=== PATIENT | male | born 1950 | race Caucasian/White ===

== ENCOUNTER 2018-12-22 16:43 | Inpatient (IN) | payer OTHER, SELFPAY ==
[2018-12-22 18:04] VITALS: BP 106/66; PULSE 79; RESP 19; TEMP 36.2; O2SAT 96
--- NOTE | 2018-12-22 18:35 | W.PM.HP.N ---
Date of service: 12/22/18 Time of Service: 18:35 Assessment and Plan (1) Pancreatic cancer: Current visit: Yes Status: Acute Plan is to keep Grant as comfortable as possible and to transfer him to [facility] and rehab when available. He is presently on fentanyl patch 200 mcg new patches were placed at admission to hospital. He also has morphine for shortness of breath and Dilaudid for pain I am concerned that he may have some brain involvement when he speaks of the visual hallucinations that he is having. He seems to be processing things correctly, but in his brain not necessarily seeing things correctly. His significant weakness which evolved over the last 24 hours makes him at risk to stay at home. He will need to be in an extended care facility. Hospice new this was coming in and was planning on this. Due to his significant weakness and placement at [facility] and [facility], I have asked physical therapy to come in and evaluate what he needs to transfer safely I would appreciate care management to help in coordinating his care from [facility] to [facility] Patient is a DNR/DNI (2) Diabetes mellitus: Current visit: Yes Status: Chronic Will cover him with his usual Lantus and NovoLog. Twice daily blood sugar testing. Patient can refuse testing if he wants to. (3) CAD (coronary artery disease): Current visit: Yes Status: Chronic Will continue his cardiac medications (4) Weight loss, abnormal: Current visit: Yes Status: Acute History of Present Illness Chief Complaint: Abdominal pain and weakness Narrative: Grant is a 68-year-old male who was in his usual state of health until approximately 2 months ago when he developed abdominal pain. A CT scan was obtained and he was found to have widespread metastatic prostate cancer to lungs liver and stomach. He had lost approximately 100 pounds and is now about 350 pounds. He went on hospice approximately 3 weeks ago. He lives alone Today he woke up and was extremely weak. He was unable to get from the commode to the bed. He needed a lift assist. Hospice had anticipated that he would require an extended care facility toward the end of his life as he lives alone and there was no person capable of being a caregiver in the home. Unfortunately the time has come as he feels too weak to even turn over in bed. The overall plan is to admit him to respite care at [facility], and then transfer to [facility]. He is a [facility] and is eligible for placement at [facility] and rehab. Hospice has all of these paperwork in place. [facility] was not able to accept him today Today Grant states that he is hungry and really wants to eat. He said he is been unable to get food for him self for the last 24 hours. Review of Systems Review of Systems Initially patient thought his epigastric pain was secondary to lifting word. But CT scanning revealed that he had metastatic pancreatic cancer. Presently his epigastric region is in significant pain also goes down his right arm. He has developed significant weakness and is not able to turn over in bed. He also says that his brain is not processing things well. For instance he thought that I was 1 of his friends even though he knew what was the doctor, he said what he saw was his friend face. His p.o. intake continues to be good. There has been a reported 100 pound weight loss Constitutional Reports fatigue, Denies poor appetite, Reports weakness and Reports weight loss Eyes Reports other visual disturbances (hallucinations) Cardiovascular Reports chest pain and Reports dyspnea Respiratory Reports dyspnea Gastrointestinal Reports abdominal pain, Denies constipation and Reports nausea Genitourinary Reports system reviewed and no additional complaints, except as docu Musculoskeletal Reports back pain and Reports radiating pain into limb (right shoulder) Neurologic Reports weakness Psychiatric Reports visual hallucinations Endocrine Reports fatigue PFSH Social History Smoking/Tobacco Use Status: Former Tobacco Use Quit Date: 04/19/79 Tobacco: How many years used: 17 Alcohol Intake: former Drug use: Never Details: Prescribed opiates Do you feel safe at home: Yes Do you feel safe in your relationship?: Yes Meds Home Medications Medication Instructions Recorded Confirmed Type acetaminophen 325 mg PO Q4H PRN 12/22/18 12/22/18 History acetaminophen 650 mg ME Q6H PRN 12/22/18 12/22/18 History carvedilol 6.25 mg PO BID 12/22/18 12/22/18 History clonidine HCl 0.1 mg PO QAM 12/22/18 12/22/18 History fentanyl 100 mcg/hr transdermal 2 patch TD Q72H #10 each MDD 200mcg 12/22/18 Rx patch folic acid 1 mg PO QAM 12/22/18 12/22/18 History gabapentin 300 mg PO BID 12/22/18 12/22/18 History haloperidol lactate 1 mg PO Q6H PRN 12/22/18 12/22/18 History hydromorphone 4 mg PO Q3H PRN 12/22/18 12/22/18 History hyoscyamine sulfate 1 tab PO Q4H PRN 12/22/18 12/22/18 History insulin aspart U-100 [Novolog 0 unit SUBCUT BID 12/22/18 12/22/18 History Flexpen U-100 Insulin] insulin glargine [Lantus Solostar 30 unit SUBCUT QPM 12/22/18 12/22/18 History U-100 Insulin] lisinopril 40 mg PO DAILY 12/22/18 12/22/18 History lorazepam [Ativan] 1 mg PO Q6H PRN 12/22/18 12/22/18 History metformin 1,000 mg PO BID 12/22/18 12/22/18 History methotrexate sodium 2.5 mg PO .QMONDAY 12/22/18 12/22/18 History morphine concentrate 5 - 20 mg PO Q1H PRN 12/22/18 12/22/18 History ondansetron 4 mg PO Q8H PRN 12/22/18 12/22/18 History polyethylene glycol 3350 [Miralax] 17 g PO DAILY 12/22/18 12/22/18 History prochlorperazine maleate 10 mg PO Q6H PRN 12/22/18 12/22/18 History sennosides [senna] 8.6 mg PO DAILY 12/22/18 12/22/18 History sodium phosphates [Fleet Enema] 1 ml ME DAILY PRN 12/22/18 12/22/18 History Allergies Allergy/AdvReac Type Severity Reaction Status Date / Time cephalexin Allergy Unknown Unverified 12/22/18 17:22 felodipine Allergy Unknown Unverified 12/22/18 17:22 metoprolol Allergy Unknown Unverified 12/22/18 17:22 naproxen Allergy Unknown Unverified 12/22/18 17:22 nifedipine Allergy Unknown Unverified 12/22/18 17:22 Exam Narrative Exam Narrative: Grant is a friendly 68-year-old man who 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 He is unable to sit up or move from side to side without assistance. During some of our visit, his meal had come, and he stated he was very hungry and wanted to eat. I made the exam portion of his history and physical short because of his inability to move and his desire to eat Const General: cooperative and comfortable Nutritional Appearance: obese Orientation: oriented x3 Eyes General: appearance normal, both eyes and all related structures Neck Other: He does have a fullness to his lower neck on both sides. He states that he did not used to be able to see being because of his obesity. He thinks that they are just normal in about his been there but hidden by his additional weight Resp Effort & Inspection: able to speak in complete sentences and abnormal respiratory pattern Auscultation: no crackles and diminished lung sounds Cardio Rhythm: regular rhythm GI Palpation: soft and tender Auscultation: normal bowel sounds Skin General skin exam: no rashes or lesions noted Psych Appearance: grossly normal Speech and Movement: speech clear and slowed movement Mood: congruent mood (matter of fact about his pancreatic ca and prognosis) Attitude: cooperative
[2018-12-22 19:55] VITALS: BP 96/68; PULSE 86; RESP 20; TEMP 36.7; O2SAT 96
[2018-12-22] MEDS: Gabapentin 300 MG CAP PO (19:57)
[2018-12-22] MEDS: Carvedilol 6.25 MG TAB PO (19:57)
[2018-12-22] MEDS: cloNIDine 0.1 MG TAB PO (19:59)
[2018-12-22] MEDS: Insulin Glargine 300 UNITS/3 ML PEN 30 UNITS SC (20:12)
[2018-12-22] MEDS: Insulin Aspart 300 UNITS/3 ML PEN 10 UNITS SC (20:14)
[2018-12-22 21:39] VITALS: O2SAT 96
[2018-12-23] MEDS: Senna TAB 1 TAB PO (08:34)
[2018-12-23] MEDS: Carvedilol 6.25 MG TAB PO ×2 (08:34→20:26)
[2018-12-23] MEDS: Lisinopril 20 MG TAB 40 MG PO (08:34)
[2018-12-23] MEDS: cloNIDine 0.1 MG TAB PO ×2 (08:34→20:26)
[2018-12-23] MEDS: Insulin Aspart 300 UNITS/3 ML PEN 10 UNITS SC ×2 (08:34→16:47)
[2018-12-23] MEDS: Polyethylene Glycol 3350 17 GM PACKET PO (08:34)
[2018-12-23] MEDS: Gabapentin 300 MG CAP PO ×2 (08:34→20:26)
[2018-12-23] MEDS: metFORMIN 500 MG TAB 1000 MG PO ×2 (09:22→16:47)
--- NOTE | 2018-12-23 09:55 | INITIAL_ITS ---
- If Service Date Differs Date of service: 12/23/18 Time of Service: 09:55 Care Management Initial Assess REASON FOR HOSPITALIZATION:: Hospice symptom management PAST MEDICAL HISTORY/PAST SURGICAL HISTORY:: Metastatic prostate cancer. Pancreatic cancer. Diabetes mellitus. CAD PREVIOUS FUNCTIONAL STATUS/SOCIAL/FAMILY SUPPORTS:: Grant lives alone in a single family home in [place], [place] He was diagnosed with metastatic cancer in November and it had progressed beyond the point where treatment could offer any benefit. He comes to [facility] for hospice respite and will be transferred to [facility] on Wednesday. CURRENT FUNCTIONAL STATUS:: Víctor was very pleasant and cooperative when CM came to visit. He talked about his newly diagnosed cancer and the rapidity with which it has progressed. He was offered chemotherapy he said but was told it would only extend the inevitable by a couple of months. He stated that he preferred to go in the Lord's time. ADVANCE DIRECTIVES:: None on file Has patient been provided with information about the portal?: No Did the patient sign up for the portal?: No CODE STATUS:: DNR/DNI INSURANCE COVERAGE / FINANCIAL ISSUES:: [facility] CURRENT HOME/COMMUNITY SERVICES/EQUIPMENT:: hospice PRIMARY CARE PHYSICIAN:: Evon Corral MD PLAN:: Grant was admittted to [facility] for hospice respite. He is receiving medications to control his pain. He will be transferred to [facility] on Wednesday for further end of life care..
--- NOTE | 2018-12-23 11:43 | PT.INIE ---
Date of service: 12/23/18 Time of Service: 09:59 PT Notes Inpatient Physical Therapy Evaluation Date: 12/23/2018 Referring Doctor: Evon Corral PT Orders: PT CONSULT: We need to know how to best assist pt to be able to transfer, use commode Precautions: Fall. Standard. Morbid obesity. Patient Profile/Admitting Diagnosis: Patient is a 68 year old male who has stage four pancreatic cancer that has metastasized throughout his lungs and liver causing widespread pain. He also has morbid obesity. PMHX: Weight loss, abnormal Morbid obesity CAD (coronary artery disease) Diabetes Mellitus Pancreatic cancer Social History/Home Situation: Mr. Escobar reports that he lived alone in a home with three steps to enter and a railing on the left. His neighbors assisted him occasionally but are no longer able to due to his weight. Equipment Owned/DME: 4[employer] w/brakes Subjective: Mr. Escobar reports 4/10 widespread pain and desires to rest. He reports he is not receiving chemotherapy or radiation therapy for his condition, and has made peace with his current condition and its progression. Objective: General Observation: Mr. Escobar was seeing laying supine with HOB elevated, edema on bilateral lower extremities, open-area on the R posterior calf wrapped with dressing. Patient has flynn catheter. Mental Status: Alert and oriented x 4 Pain: 4/5 widespread ROM: Right Upper Extremity: Shoulder Flexion less than half of full ROM. Shoulder abduction less than half of full ROM. Elbow flexion WFL. Functional opening and closing of hand WFL. Left Upper Extremity: Shoulder Flexion WFL. Shoulder abduction WFL. Elbow flexion WFL. Wrist flexion WFL. Functional opening and closing of hand WFL. Right Lower Extremity: Markedly decreased globally Left Lower Extremity: Markedly decreased globally Strength: Right Upper Extremity: Shoulder flexors 3-/5. Shoulder abductors 3-/5. Elbow flexors 4/5. Elbow extensors 5/5. Supervisor Speech strong. Left Upper Extremity: Shoulder flexors 4/5. Shoulder abductors 4/5. Elbow flexors 5/5. Elbow extensors 5/5. Supervisor Speech strong. Right Lower Extremity: 3- globally Left Lower Extremity: 3- globally Bed Mobility/Transfers: Requires 2 people Rolling Moderate assist Supine to sit Moderate assist Sit to supine Moderate assist Sit to stand Maximum assist Stand to sit Maximum assist Bed to chair Moderate assist with STEDY-lift Chair to bed Moderate assist with STEDY-lift Gait: Patient is unable to ambulate independently with any assistive device and contact-assistance. Balance: Static Sitting: Normal Dynamic Sitting: Good Static Standing: Poor Dynamic Standing: Unable Special Tests: Mobility Limitations Standardized Measure [facility] AM-PAC 6 clicks Basic Mobility Inpatient Short Form: Raw Score: 9 CMS Score: 81% Informed Consent/Education: Patient instructed in purpose of PT consult and plan of care. Assessment: Patient is a 68 year old male with stage 4 pancreatic cancer and morbid obesity. He presents with edematous lower extremities and a significant wound on the posterior of his R lower leg. He required moderate assist with all bed mobility activities, and a STEDY-lift with two people for transfers. He is no longer accepting treatment for his cancer. While his prognosis is poor, he has made peace with his current condition and its progression. Patient presents with clinical signs and symptoms consistent with current/admitting diagnoses that have resulted to mobility limitations, gait instability, generalized weakness, and impairment of motor control as demonstrated by the following impairment level findings: 1. Decreased strength to B LE major muscle groups 2. Impaired sitting/standing balance 3. Impaired activity tolerance 4. Limitation of joint range of motion globally Impairments are contributing to the following functional limitations: 1. Dependent bed mobility skills 2. Increased dependence with transfers 3. Inability to safely ambulate without assistive device and physical assistance 4. Increase completion time for mobility ADL performance 5. Increased fall risk 6. Inability to negotiate steps alone safely Patient is assessed as a high complexity based on the following: History: Stage 4 pancreatic cancer with metastases, wound on lower extremity, morbid obesity, diabetes, CAD Examination: Demonstrable impairment in strength, balance, and range of motion with underlying impairments and functional limitations as documented above Presentation: Evolving Decision Making: High complexity Goals: Goals X1 week 1. Increase standing balance/tolerance up to 7 minutes in STEDY-lift. 2. Increase activity tolerance to 2 sets of B LE exercises every two hours. Plan of Care/Treatment Plan: 1-2x/day, 7 days/week x 1 week. Plan of care has been reviewed with the BIOMASS FACILITATOR providing the service under Physical Therapy direction. Initiate Physical Therapy intervention for strengthening, bed mobility, transfers, gait, stairs, balance training, use of assistive device. DISCHARGE RECOMMENDATIONS: Patient is recommended to be discharged to a long-term facility once medically stable. He will require moderate assistance for all bed mobility and a STEDY-lift to transfer him. TREATMENT CODE/TIME: 41251 x 40 minutes 85850 x 11 minutes beginning at 9:59 AM. Thank you very much for this referral. Martell Kahn [facility] With the supervision of: Cristina Molina PT, DPT, CLT [facility]
[2018-12-23] MEDS: Nystatin POWDER 60 GM JAR TP ×2 (14:19→20:21)
[2018-12-23] MEDS: Ondansetron O.D.T. 4 MG TABEF PO (14:31)
--- NOTE | 2018-12-23 15:02 | PGE_ITS ---
Date of Service Date of service: 12/23/18 Time of Service: 12:03 Assessment and Plan (1) Pancreatic cancer: Current visit: Yes Status: Acute (2) Diabetes mellitus: Current visit: Yes Status: Chronic (3) Karina infection: Current visit: Yes Status: Acute wound care: nursing is cleansing the area and using nystatin powder. Lower right leg is wrapped Pancreatic cancer: continues to have pain. Presently controlled with frequent administration of morphine. COnt with the fentanyl patches 200mcg DM - stable. He will remain on respite care at [facility] with plans to move to [facility] and rehab on Wednesday Nursing can call me with any concerns: [phone] This document was created by [employer] recognition and may contain grammatical and translation errors. Subjective Patient reports: no new complaints, feels better, still having pain, tolerating a regular diet and shortness of breath Interval history since last seen: Overall feeling safe and well cared for. He stated they had a lot of problems with his skin last pm Exam Narrative Exam Narrative: Sitting in a chair, eating lunch. He had finished about 3/4 when I walked in. His eyes were bright. There was a flynn catheter in place Const General: cooperative Nutritional Appearance: obese Orientation: oriented x3 Eyes General: appearance normal, both eyes and all related structures Resp Effort & Inspection: normal respiratory effort Auscultation: clear to auscultation bilaterally and diminished lung sounds Cardio Rhythm: regular rhythm GI Palpation: soft and guarding Auscultation: normal bowel sounds Meatus: meatus normal Skin General skin exam: erythema (near penis and inner left thigh) Wounds: wounds noted (right lower leg , skin tear) Psych Appearance: grossly normal Mental Status: mental status grossly normal Objective Objective Clinical Data: Vital Signs Temperature 98.1 F 12/22/18 19:55 Temperature Source Tympanic 12/22/18 19:55 Pulse 86 12/22/18 19:55 Pulse Rhythm Regular 12/22/18 19:46 Respiratory Rate 20 12/22/18 19:55 Respiratory Effort 12/23/18 08:35 Respiratory Depth Normal 12/23/18 08:35 Respiratory Pattern Normal 12/23/18 08:35 Blood Pressure 96/68 L 12/22/18 19:55 Pulse Oximetry 96 12/22/18 21:39 Oxygen Delivery Method Room Air 12/22/18 21:39 Oxygen Flow Rate 0 12/22/18 21:39 Pain Level 5 12/23/18 12:00 Intake & Output 12/22/18 12/23/18 12/23/18 23:59 11:59 23:59 Intake Total 360 / 360 Output Total 200 / 200 Balance -200 / 160 360 / 160 Weight 325 lb 325 lb 6.436 oz Intake: Oral 360 / 360 Output: Urine 200 / 200 Other: Urine Color Yellow Yellow Urine Appearance Clear Clear
--- NOTE | 2018-12-23 15:33 | CHAPLAIN ---
Grant had a friend visiting when I stopped in. He is a member of the [facility] [employer] and said his fundraising director was here last night. His friend is also from the [facility]. Grant told me that he lives alone, and now no longer thinks he can care for himself at home. He told me he has pancreatic cancer. He seems to be comfortable being here and to be support by his rastafarian as he has not family. I will continue to visit.
--- NOTE | 2018-12-23 16:00 | PTTR_ITS ---
Date of service: 12/23/18 Time of Service: 09:59 PT Notes Inpatient Physical Therapy Treatment Note Date: 12/23/2018 PRECAUTIONS:Fall. Standard. Activity as tolerated. SUBJECTIVE: Mr. Escobar is feeling tired, lethargic, and needed coaxing to participate in therapy. The SPT offered exercises to enhance bed mobility and he asked: ?Why do I have to do exercises if I?m just going to ?? He eventually agreed to participate. OBJECTIVE: Mr. Escobar was seen laying supine with HOB elevated. PAIN: Patient reports widespread pain along the abdominal region BED MOBILITY/TRANSFERS Rolling L/R: Mod assist of 2 Supine-sit: Mod assist of 2 Sit-supine: Mod assist of 2 Sit-stand: Assist of 2 using STEDY lift Stand-sit: Assist of 2 using STEDY lift Bed-Chair: Assist of 2 using STEDY lift Chair-bed: Assist of 2 using STEDY lift When using STEDY lift, L leg goes against L neal guard as it gives way and the bed may need to be elevated significantly to facilitate sit to stand. GAIT: Patient unable to ambulate. THEREX: 1 x 10 ankle pumps, quad sets, glute sets, and shoulder flexion. Refused 1 x 10 shoulder abduction. ASSESSMENT: Patient is a 68 year old male admitted with stage 4 pancreatic cancer with metastases. He reports widespread pain, and needs strong convictions to participate in physical therapy sessions. He requires moderate assistance for bed mobility, often from multiple people. Despite his poor prognosis, he has accepted his current condition and it?s progression. cancer. While his prognosis is poor, he has made peace with his current condition and its progression. Patient presents with clinical signs and symptoms consistent with current/admitting diagnoses that have resulted to mobility limitations, gait instability, generalized weakness, and impairment of motor control. PLAN: 1x/day, 7 days/week x 1 week. Plan of care has been reviewed with the SLIDING JOINT MAKER providing the service under Physical Therapy direction. Initiate Physical Therapy intervention for strengthening, bed mobility, transfers, gait, stairs, balance training, use of assistive device. DISCHARGE RECOMMENDATIONS: Patient is recommended to be discharged to a detention facility once medically stable. He will require moderate assistance for all bed mobility and a STEDY-lift to transfer him. TREATMENT CODE/TIME: 65373 x 26 minutes beginning at 14:16 PM. Thank you very much for this referral. Martell Kahn [facility] With a supervision of: Cristina Molina PT, DPT, CLT [facility]
[2018-12-23] MEDS: Prochlorperazine 10 MG TAB PO (18:14)
[2018-12-23] MEDS: Insulin Glargine 300 UNITS/3 ML PEN 30 UNITS SC (20:21)
[2018-12-23 20:30] VITALS: BP 129/72; PULSE 72
[2018-12-24] MEDS: Polyethylene Glycol 3350 17 GM PACKET PO (07:42)
[2018-12-24] MEDS: cloNIDine 0.1 MG TAB PO (07:42)
[2018-12-24] MEDS: Gabapentin 300 MG CAP PO ×2 (07:42→20:37)
[2018-12-24] MEDS: metFORMIN 500 MG TAB 1000 MG PO ×2 (07:42→16:50)
[2018-12-24] MEDS: Lisinopril 20 MG TAB 40 MG PO (07:42)
[2018-12-24] MEDS: Senna TAB 1 TAB PO (07:43)
[2018-12-24] MEDS: Insulin Aspart 300 UNITS/3 ML PEN 10 UNITS SC ×2 (07:43→16:50)
[2018-12-24] MEDS: Carvedilol 6.25 MG TAB PO (07:43)
[2018-12-24 08:00] VITALS: BP 116/62; PULSE 68; RESP 18; TEMP 36.3; O2SAT 95
[2018-12-24] MEDS: Nystatin POWDER 60 GM JAR TP ×3 (08:05→21:55)
[2018-12-24 10:53] VITALS: O2SAT 95
--- NOTE | 2018-12-24 13:58 | PHARADMIT ---
Admission Pharmacy Clinical Review HOSPICE (Pancreatic cancer) Plan is for [facility] on Wednesday Getting MS IVP as needed (~6 doses the last 24hrs) Fentanyl 200mcg patches, set to be changed 12/25 Dilaudid orally-not using pt does c/o pain FSBS 228 (Metformin, Lantus, Insulin)
[2018-12-24] MEDS: Insulin Glargine 300 UNITS/3 ML PEN 30 UNITS SC (20:39)
[2018-12-24 21:28] VITALS: BP 93/57; PULSE 72
[2018-12-25] MEDS: Mylanta Suspension 30 ML CUP PO (02:15)
[2018-12-25] MEDS: metFORMIN 500 MG TAB 1000 MG PO ×2 (08:27→17:26)
[2018-12-25] MEDS: Polyethylene Glycol 3350 17 GM PACKET PO (08:27)
[2018-12-25] MEDS: Carvedilol 6.25 MG TAB PO ×2 (08:28→20:09)
[2018-12-25] MEDS: Lisinopril 20 MG TAB 40 MG PO (08:28)
[2018-12-25] MEDS: Gabapentin 300 MG CAP PO ×2 (08:28→20:01)
[2018-12-25] MEDS: cloNIDine 0.1 MG TAB PO ×2 (08:28→20:01)
[2018-12-25] MEDS: Senna TAB 1 TAB PO (08:28)
[2018-12-25] MEDS: Insulin Aspart 300 UNITS/3 ML PEN 10 UNITS SC ×2 (08:30→17:26)
[2018-12-25] MEDS: fentaNYL 100 MCG PATCH 200 MCG TD (08:31)
[2018-12-25] MEDS: Patch Removal 1 EACH TP (08:35)
[2018-12-25] MEDS: Ondansetron O.D.T. 4 MG TABEF PO ×2 (08:54→21:35)
[2018-12-25] MEDS: Nystatin POWDER 60 GM JAR TP (18:25)
[2018-12-25] MEDS: Insulin Glargine 300 UNITS/3 ML PEN 30 UNITS SC (20:05)
[2018-12-26 08:00] VITALS: BP 113/71; PULSE 105; RESP 20; TEMP 35.5; O2SAT 96
--- NOTE | 2018-12-26 08:00 | DSE_ITS ---
ADMITTED: 12/22/18 DISCHARGED: 12/26/18 68 yo male with hx of RA, DM and recently dx metastatic pancreatic cancer who cam to the hospital for respite after he was unable to perform his ADL's and there was no available caregiver to help him. In the hospital he had a PT consult with help with transfers. He was also found to have a candidal infection in his groin and skin tear on his right leg from a recent fall. His PO intake was good during this admission. Wound care was done daily. He initially had a catheter placed to help with wound care. At the time of discharge, this was d/c ed per pt wishes and improvement of mary. The plan is for [facility]. It is expected that [facility] will [facility] at [facility] for the duration of his illness with Hospice oversight.
[2018-12-26] MEDS: Carvedilol 6.25 MG TAB PO (08:03)
[2018-12-26] MEDS: metFORMIN 500 MG TAB 1000 MG PO (08:03)
[2018-12-26] MEDS: Gabapentin 300 MG CAP PO (08:03)
[2018-12-26] MEDS: Senna TAB 1 TAB PO (08:03)
[2018-12-26] MEDS: cloNIDine 0.1 MG TAB PO (08:04)
[2018-12-26] MEDS: Lisinopril 20 MG TAB 40 MG PO (08:04)
[2018-12-26] MEDS: Nystatin POWDER 60 GM JAR TP (08:06)
[2018-12-26] MEDS: Polyethylene Glycol 3350 17 GM PACKET PO (08:06)
[2018-12-26] MEDS: Insulin Aspart 300 UNITS/3 ML PEN 10 UNITS SC (08:21)
--- NOTE | 2018-12-26 08:37 | INDS_ITS ---
Date of service: 12/26/18 Time of Service: 08:37 PT Notes Inpatient Physical Therapy Discharge Summary Dates: 12/26/2018 Dates of Service: 12/23/2017 only This is a clinical summary of care provided on the duration of dates listed above. No charge was made in the completion of this documentation. Referring Doctor: Evon Corral PT Orders: PT CONSULT: We need to know how to best assist pt to be able to transfer, use commode Precautions: Fall. Standard. Morbid obesity. Patient Profile/Admitting Diagnosis: Patient is a 68 year old male who has stage four pancreatic cancer that has metastasized throughout his lungs and liver causing widespread pain. He also has morbid obesity. PMHX: Weight loss, abnormal Morbid obesity CAD (coronary artery disease) Diabetes Mellitus Pancreatic cancer Social History/Home Situation: Mr. Escobar reports that he lived alone in a home with three steps to enter and a railing on the left. His neighbors assisted him occasionally but are no longer able to due to his weight. Equipment Owned/DME: 4WW w/brakes Subjective: Mr. Escobar reports 4/10 widespread pain and desires to rest. He reports he is not receiving chemotherapy or radiation therapy for his condition, and has made peace with his current condition and its progression. Objective: General Observation: Mr. Escobar was seeing laying supine with HOB elevated, edema on bilateral lower extremities, open-area on the R posterior calf wrapped with dressing. Patient has flynn catheter. Mental Status: Alert and oriented x 4 Pain: 4/5 widespread ROM: Right Upper Extremity: Shoulder Flexion less than half of full ROM. Shoulder abduction less than half of full ROM. Elbow flexion WFL. Functional opening and closing of hand WFL. Left Upper Extremity: Shoulder Flexion WFL. Shoulder abduction WFL. Elbow flexion WFL. Wrist flexion WFL. Functional opening and closing of hand WFL. Right Lower Extremity: Markedly decreased globally Left Lower Extremity: Markedly decreased globally Strength: Right Upper Extremity: Shoulder flexors 3-/5. Shoulder abductors 3-/5. Elbow flexors 4/5. Elbow extensors 5/5. [employer] Dispatcher strong. Left Upper Extremity: Shoulder flexors 4/5. Shoulder abductors 4/5. Elbow flexors 5/5. Elbow extensors 5/5. [employer]pecting Dispatcher strong. Right Lower Extremity: 3- globally Left Lower Extremity: 3- globally Bed Mobility/Transfers: Requires 2 people Rolling Moderate assist Supine to sit Moderate assist Sit to supine Moderate assist Sit to stand Maximum assist Stand to sit Maximum assist Bed to chair Moderate assist with STEDY-lift Chair to bed Moderate assist with STEDY-lift Gait: Patient is unable to ambulate independently with any assistive device and contact-assistance. Balance: Static Sitting: Normal Dynamic Sitting: Good Static Standing: Poor Dynamic Standing: Unable Assessment: Patient is a 68 year old male with stage 4 pancreatic cancer and morbid obesity. He presents with edematous lower extremities and a significant wound on the posterior of his R lower leg. He required moderate assist with all bed mobility activities, and a STEDY-lift with two people for transfers. He is no longer accepting treatment for his cancer. While his prognosis is poor, he has made peace with his current condition and its progression. Patient presents with clinical signs and symptoms consistent with current/admitting diagnoses that have resulted to mobility limitations, gait instability, generalized weakness, and impairment of motor control as demonstrated by the following impairment level findings: 1. Decreased strength to B LE major muscle groups 2. Impaired sitting/standing balance 3. Impaired activity tolerance 4. Limitation of joint range of motion globally Impairments are contributing to the following functional limitations: 1. Dependent bed mobility skills 2. Increased dependence with transfers 3. Inability to safely ambulate without assistive device and physical assistance 4. Increase completion time for mobility ADL performance 5. Increased fall risk 6. Inability to negotiate steps alone safely Goals: Goals X1 week 1. Increase standing balance/tolerance up to 7 minutes in STEDY-lift. NOT MET 2. Increase activity tolerance to 2 sets of B LE exercises every two hours. NOT MET DISCHARGE RECOMMENDATIONS: Patient is discharged today upon his request. he does not see any benefit of continuing with exercises and plans to be on hosp[facility] care at the [facility]. He plans to be discharged to a [facility] facility once m edically stable. He will require moderate assistance for all bed mobility and a STEDY-lift to transfer him. TREATMENT CODE/TIME: MA Thank you very much for this referral. Cristina Molina PT, DPT, CLT [facility]
[2018-12-26] MEDS: Acetaminophen 325 MG TAB PO (11:47)
--- NOTE | 2018-12-26 17:09 | PDOC.CMDIS ---
- If Service Date Differs Date of service: 12/26/18 Time of Service: 17:09 LACE Index Scoring Tool - Questions: Length of Stay (in days): 4 - 6 Acuity (Admit via E.D.?): No Comorbidities: Metastatic Solid Tumor E.D. Visits: 0 - Answers: Total Score: 9 Risk of Readmission: Low Risk Care Management Discharge Reason for Hospitalization: Hospice symptom management Discharge Plan: Grant will be transferred to [facility] for hospice and end of life care. Patient/Family Education Needs: End of life care Services Needed at Discharge: Longterm Facility
== END 2018-12-26 14:00 | disposition skilled nursing facility (03) | DRG 948 ==
PROVIDERS: Admitting Provider Family Medicine; PCP Family Medicine; Visit Provider Family Medicine
DX: C25.9 Malignant neoplasm of pancreas, unspecified (principal); G89.3 Neoplasm related pain (acute) (chronic); E11.9 Type 2 diabetes mellitus without complications; B37.2 Candidiasis of skin and nail; S81.811A Laceration without foreign body, right lower leg, initial encounter; W19.XXXA Unspecified fall, initial encounter; Z51.5 Encounter for palliative care
CPT/HCPCS: 97110; 97163; 97530; NC; J3490